=== PATIENT | female | born 1990 | race Caucasian/White ===

== ENCOUNTER → 2017-12-04 07:36 | Outpatient (CLI) | payer BC, SELFPAY ==
[2017-12-06 15:28] LABS: HPV Reflexed? NOT INDICATED
== END ==
PROVIDERS: Visit Provider Obstetrics & Gynecology
DX: Z12.4 Encounter for screening for malignant neoplasm of cervix (principal)
CPT/HCPCS: 88175; G0145

== ENCOUNTER → 2017-12-20 13:15 | Outpatient (CLI) | payer BC, SELFPAY ==
[2017-12-20 13:50] LABS: Absolute Lymphocyte Count 2.22 X10^3/ul (0.83-4.51); Basophil# 0.07 X10^3/uL; Basophil% 0.8 % (0-1); Eosinophil# 0.45 X10^3/uL; Eosinophils% 5.4 % (0-5); Hematocrit 37.5 % (37-47); Hemoglobin 12.5 g/dl (12.0-15.0); Lymphocyte # 2.22 X10^3/ul (4.0); Lymphocyte % 26.9 % (19-41); Mean Corp Hgb Conc 33.3 g/gl (32-36); Mean Corpuscular Hgb 29.6 pg (27.0-32.0); Mean Corpuscular Volume 88.7 fL (81-99); Mean Platelet Vol. 10.1 fl (6.2-12.0); Monocyte# 0.56 X10^3/uL; Monocyte% 6.8 % (0-10); Neutrophil # 4.95 X10^3/uL (2.7-7.7); POSITIVE COUNT NO; POSITIVE DIFFERENTIAL NO; POSITIVE MORPHOLOGY NO; Platelet Count 354 K/mm3 (150-450); RBC Distribution Width CV 12.3 % (11.6-14.6); RBC Distribution Width SD 38.7 fl (35.1-43.9); Red Blood Count 4.23 M/mm3 (4.2-5.4); White Blood Count 8.3 K/mm3 (4.4-11.0)
[2017-12-20 14:21] LABS: Thyroid Stim Hormone (TSH) 1.91 uIU/mL (0.358-3.74)
== END ==
PROVIDERS: Visit Provider Obstetrics & Gynecology
DX: N93.9 Abnormal uterine and vaginal bleeding, unspecified (principal)
CPT/HCPCS: 36415; 84443; 85025

== ENCOUNTER → 2017-12-25 13:14 | Outpatient (CLI) | payer BC, SELFPAY ==
--- NOTE | 2017-12-25 13:15 | US_ITS ---
STUDY: ULTRASOUND TRANSVAGINAL CLINICAL: Female, 27 years old. Menorrhagia TECHNIQUE: Transvaginal COMPARISON: Previous study of 07/17/2009 FINDINGS: Normal uterine size measuring 9.2 x 5.5 x 3.6 cm. There are no myometrial masses. Normal endometrial thickness measuring 7 mm. There are no endometrial masses, and there is no fluid in the endometrial cavity. Normal uterine cervix. Normal right ovary, measuring 3.2 x 1.8 x 2.1 cm. There is a 2.4 x 1.8 x 1.3 cm right ovarian cyst. Normal left ovary, measuring 2.6 x 2.3 x 1.5 cm. There are multiple follicles without a dominant cyst. There is no free fluid in the pelvis. Polycystic ovary disease: No. US/Transvaginal Non- IMPRESSION: 2.4 x 1.8 x 1.3 cm right ovarian cyst. The study is otherwise unremarkable. Electronically Signed: Miguel Ángel Sargent MD at 20:39 EDT , Service support ,
--- NOTE | 2017-12-25 13:15 | US_ITS ---
STUDY: ULTRASOUND TRANSVAGINAL CLINICAL: Female, 27 years old. Menorrhagia TECHNIQUE: Transvaginal COMPARISON: Previous study of 07/17/2009 FINDINGS: Normal uterine size measuring 9.2 x 5.5 x 3.6 cm. There are no myometrial masses. Normal endometrial thickness measuring 7 mm. There are no endometrial masses, and there is no fluid in the endometrial cavity. Normal uterine cervix. Normal right ovary, measuring 3.2 x 1.8 x 2.1 cm. There is a 2.4 x 1.8 x 1.3 cm right ovarian cyst. Normal left ovary, measuring 2.6 x 2.3 x 1.5 cm. There are multiple follicles without a dominant cyst. There is no free fluid in the pelvis. Polycystic ovary disease: No. US/Pelvic (Non ) IMPRESSION: 2.4 x 1.8 x 1.3 cm right ovarian cyst. The study is otherwise unremarkable. Electronically Signed: Miguel Ángel Sargent MD at 20:39 EDT , Service support ,
== END ==
PROVIDERS: Visit Provider Obstetrics & Gynecology
DX: N93.9 Abnormal uterine and vaginal bleeding, unspecified (principal)
CPT/HCPCS: 76830; 76856; 93976

== ENCOUNTER 2019-03-28 10:12 | Day surgery (SDC) | payer BC, SELFPAY ==
[2019-02-12 09:32] VITALS: BMI 22.2
[2019-03-04 10:40] VITALS: BMI 22.2
--- NOTE | 2019-03-15 04:14 | HP.PCM_ITS ---
- Problem List (1) Abnormal uterine bleeding Status: Acute Comment: OCP failed, offered lysteda and IUD- declined. plan lavhbs cysto. 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 Operator Required: No Is patient in pain?: No Allergies No Known Allergies Allergy (Verified 03/04/19 10:24) Medications citalopram 20 mg tablet 20 mg PO DAILY 02/12/19 [History Confirmed 03/04/19] hydroxyzine pamoate 25 mg capsule 25 mg PO QHS 02/12/19 [History Confirmed 03/04/19] Is last menstrual period known: No Post menopausal: No Patient : No : No [facility] Medical History Anxiety and depression (Acute) Surgical History S/P (Resolved) Tubal ligation status (Resolved) Family History Grandmother Breast cancer Social History (Updated 03/04/19 @ 10:40 by Nishi Sweet MD) Smoking Status: Former smoker alcohol intake: current alcohol intake frequency: holidays/special occasions only substance use type: does not use caffeine: Yes what type of physical activity do you participate in: none seatbelt use: always do you feel safe at home: Yes additional social history: - 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 plan surgical intervention. Pregancy History 5 Elective abortions Hx Para 3 Spontaneous abortions Hx # Term Pregnancies Ectopic pregnancies Hx # Pregnancies Multiple births # of living children Past Pregnancies Del. Date Name GA/Weeks Outcome Route Bth Weight Infant Gen Labor Lgth Anesthesia Del Locatn Provider FOB 03/03/10 Cherelle live - full term [facility] 04/22/14 Jessica live - full term [facility] Dr. Sweet 04/27/16 Rachel live - full term [facility] Dr. Brain Chandler Constitutional: Denies fatigue, fever(s), headache(s), increased appetite, poor appetite, weight gain or weight loss Cardio Card: Denies chest pain Resp Resp: Denies cough or dyspnea GI GI: Reports as per HPI; denies abdominal pain, constipation, nausea or vomiting : Reports as per HPI; denies difficulty urinating, painful urination, nipple discharge, urinary frequency, urinary incontinence, urinary hesitancy, urinary urgency, vaginal discharge, vaginal dryness, vaginal odor or vaginal itching Skin Skin/Breast: Denies change in hair, breast lump, breast pain, breast skin changes or nipple discharge Exam Const General: cooperative, healthy appearing, comfortable, no acute distress, well developed Nutritional Appearance: average body habitus Orientation: alert HENMT Head: normal to inspection, normocephalic Neck Neck: normal visual inspection, trachea midline Thyroid: thyroid normal Resp Effort & Inspection: normal respiratory effort GI Inspection: normal to inspection, non-distended Palpation: soft, no hepatosplenomegaly General: bladder normal to palpation External Female Exam: normal external appearance, normal appearance of the urethra Urethra: normal appearance of the urethra, normal palpation, no discharge Speculum Exam - Vagina: normal appearance of the vagina, normal vaginal discharge Speculum Exam - Cervix: normal appearance of the cervix, nontender Bimanual Exam- Vagina & Uterus: normal bimanual exam, uterine size normal, bladder normal to palpation, uterine shape normal, No cervical tenderness, uterine mobility normal, uterine consistency normal, normal cervical palpation, uterus non-tender Bimanual Exam- Adnexa, other: normal adnexae, adnexae mobile, no adnexal masses, pelvic support normal Pelvic Support: normal Skin General: no rashes or lesions noted Assessment & Plan Problems 1. Abnormal uterine bleeding N93.9 OCP failed, offered lysteda and IUD- declined. plan lavhbs cysto. plan same day Plan plan LAVH BS cysto. discussed surgical risks including risks of anesthesia, infection, bleeding, injury to bowel, bladder or blood vessels, and patient wishes to proceed with surgery. Coding Level of Care Code No Charge Diagnoses Abnormal uterine bleeding N93.9 UPDATE- I have seen the patient and performed any clinically relevant updates to the history and physical exam. Nishi Sweet MD
[2019-03-28] VITALS (12 sets, daily range): BP systolic 93–103; BP diastolic 54–70; PULSE 62–99; RESP 16–18; TEMP 36.3–37; O2SAT 94–100; BMI 19.8
[2019-03-28 10:44] LABS: Internal QC Validated? YES +Cl - CLEAR BKGD; Pregnancy, Urine Negative Negative
[2019-03-28] MEDS: Scopolamine 1mg/72hr Patch 1 PATCH TRANSDERM. (11:00)
[2019-03-28 11:05] LABS: Hematocrit 38.7 % (37-47); Hemoglobin 12.8 g/dL (12.0-15.0); Mean Corp Hgb Conc 33.1 g/dL (32-36); Mean Corpuscular Hgb 29.5 pg (27.0-32.0); Mean Corpuscular Volume 89.2 fL (81-99); Mean Platelet Vol. 9.8 fl (6.2-12.0); Platelet Count 265 K/mm3 (150-450); RBC Distribution Width CV 11.7 % (11.6-14.6); RBC Distribution Width SD 38.3 fl (35.1-43.9); Red Blood Count 4.34 M/mm3 (4.2-5.4); White Blood Count 5.8 K/mm3 (4.4-11.0)
[2019-03-28] MEDS: Celecoxib 200 MG Capsule 400 MG PO (11:05)
[2019-03-28] MEDS: Gabapentin 600 MG Tablet PO (11:06)
[2019-03-28] MEDS: Phenazopyridine 95 MG Tablet 190 MG PO (11:06)
[2019-03-28] MEDS: Enoxaparin 40 MG/0.4 ML Syringe SC (11:07)
[2019-03-28] MEDS: Acetaminophen 500 MG Tablet 1000 MG PO ×2 (11:07→20:11)
[2019-03-28 11:15] LABS: Bedside Glucose 90 mg/dL (70-110)
[2019-03-28] MEDS: dexAMETHasone 10 MG/ML Vial 8 MG IV (11:25)
[2019-03-28] MEDS: Magnesium Sulfate 4gm/100mL 4 GM/100 ML IV.SOLN. IV (11:25)
[2019-03-28] MEDS: Cefazolin 2 GM in 0.9% Normal Saline 100 ML IV (12:01)
[2019-03-28] MEDS: Ondansetron 4 MG/2 ML Vial IV (12:10)
--- NOTE | 2019-03-28 12:10 | HYST_PTH ---
PATIENT: MICK FRYE [place] [facility] [place][id number] AGE/SX: 28/F ROOM: RE03/28/[address]: Dr. Nishi Sweet MD : 1990 BED: DIS: 03/28/2019 SPEC #: [id number] RECD: 03/28/19 16:06 STATUS: IAN ALINE #: [id number] JABIER: 03/28/19 12:[address]: Nishi Sweet DEPT: SURGICAL PATHOLOGY RECD BY: Mary Ellen Astorga ENTERED: 03/29/19 09:07 SP TYPE: HYSTERECT OTHR DR: Dr. Steph Lau MD Tissues: Uterus, NOS Procedures: Surgery Specimen Level V HEADER OPERATION: ERAS, hysterectomy, lap assisted vaginal salpingectomy PRE-OP DIAGNOSIS: Abnormal uterine bleeding TISSUE SUBMITTED: Uterus, bilateral fallopian tubes MICROSCOPIC DIAGNOSIS Uterus, hysterectomy: Cervix - nabothian cyst and minimal chronic inflammation. Endometrium - proliferative endometrium. Myometrium - focal superficial adenomyosis. Right fallopian tube - benign paratubal cyst. Left fallopian tube - no pathologic change. AM:micheal 04/01/19 MICROSCOPIC DESCRIPTION Slides are reviewed. GROSS DESCRIPTION Received in fixative is one container labeled with the patient's name and designated uterus, bilateral fallopian tubes. The specimen consists of a hysterectomy specimen consisting of uterus with cervix and attached bilateral fallopian tubes. The uterus with cervix weighs 106 gm and measures 9.5 x 6.5 x 4 cm. The serosal surface is guillen, glistening. The ectocervical mucosa is unremarkable. The external os is oval in contour. The endocervical canal measures 3.5 cm in length and the endocervical mucosa is guillen, glistening and unremarkable. The triangular endometrial cavity measures 5 cm in length and up to 3 cm in width. The endometrium is congested without any mass lesion and measures up to 0.2 cm in thickness. Sections of the uterine wall do not reveal any mass lesion and it measures up to 2 cm in thickness. The right fallopian tube measures 6.5 cm in length and 0.5 cm in diameter. A congested paratubal cyst is noted close to the fimbrial end measuring 2 cm in greatest dimension. The proximal end of the fallopian tube shows a Filshie clip which appears intact. The paratubal cyst is filled with brownish, turbid material. No papillations are identified. The cyst wall measures 0.1 cm in thickness. The left fallopian tube is similar appearance to right and measures 5.5 cm in length and 0.5 cm in diameter. A paratubal cyst is noted measuring 1 cm in greatest dimension. A Filshie clip is also noted at the proximal end which appears intact. Sections reveal unremarkable cut surfaces. Body Piercer sections are submitted in nine cassettes as follows: 1 - anterior cervix, 2 - posterior cervix, 3 & 4 - anterior uterine wall, 5 & 6 - posterior uterine wall, 7 - right fallopian tube, 8 - right paratubal cyst, 9 - left fallopian tube. / ROMIE:micheal 03/29/19 TC:5 CPT: 83264
[2019-03-28] MEDS: Vasopressin 20 UNITS/ML Vial (12:30)
[2019-03-28] MEDS: Bupivacaine 0.25% 30 ML Vial (13:00)
--- NOTE | 2019-03-28 14:32 | PCM.OPRPT ---
Problem List (1) Abnormal uterine bleeding Status: Acute Comment: OCP failed, offered lysteda and IUD- declined. plan lavhbs cysto. plan same day Report of Operation Date of Procedure: 03/28/19 Pre-Operative Diagnosis: aub Post-Operative Diagnosis: same Surgery/Procedure Performed:: lavh bs cysto Description of Surgical Findings:: bladder adhesions quality engineer medical device: Sarah Hollingsworth Type of Anesthesia:: General Special Medications: nam Specimen's removed: uterus tubes Drains: urias Estimated Blood Loss (mL): 100 Fluids Replaced: crystalloid Description of Procedure: Patient received preoperative antibiotics and SCDs were on preoperatively. Patient was taken back to the operating room and placed in the dorsal lithotomy position. General anesthesia was induced and patient was prepped and draped in normal sterile fashion. Uterine manipulator was placed inside the uterus and Urias catheter placed in the bladder. The umbilicus was grasped with towel clamps and an intraumbilical incision was made after injecting with quarter percent Marcaine and a Veress needle entered into the abdomen confirmed to be intra-abdominal with a low opening pressure. Abdomen was insufflated with CO2 gas and the Veress needle removed and the 5 mm trocar was placed under direct visualization without complication. Right and left lower quadrants were transilluminated and injected with quarter percent Marcaine and 5 mm ports placed under direct visualization. Pelvis was well visualized see operative findings for additional information. Bilateral fallopian tubes were identified and transected with the LigaSure device across the mesosalpinx to the level of the utero-ovarian ligament which was also transected with the LigaSure device. The broad ligament was opened up by transecting the round ligament bilaterally and skeletonizing the uterine vessels bilaterally and creating a bladder flap using the LigaSure device. The uterine arteries were transected bilaterally with good visualization of the bladder and the ureters were seen to be inferior lateral to the operative area. Attention was then paid to the vaginal portion of the procedure and the cervix was grasped with Frida clamps and circumferentially injected with dilute vasopressin. A circumferential incision was made and the vaginal mucosa was mobilized off posteriorly and the cul-de-sac entered into sharply and a longneck speculum placed. The anterior cul-de-sac was then identified and entered into sharply. The uterosacral ligaments were clamped cut and suture ligated with 0 Monocryl bilaterally followed by the cardinal ligaments which were clamped cut and suture ligated bilaterally with 0 Monocryl. The uterus serially descended and was removed without difficulty with minimal morcellation. Pelvic sidewall pedicles were checked and noted to have excellent hemostasis. The vaginal mucosa was reapproximated incorporating the posterior peritoneum. This was reapproximated using 0 Vicryl [id number] sutures. Excellent hemostasis was noted. The cystoscopy was then performed and bilateral ureteral strong spray was noted and the bladder was noted to have no abnormality or lesions seen. Urias catheter was replaced and then attention paid to the abdominal portion of the procedure again. The pelvis and cul-de-sac was well visualized and no significant active bleeding noted but some raw areas were seen on the peritoneum and therefore Nam was applied. there was still a raw area seen and so the original suture was remove dand replaced and then a repeat cystoscopy confirmed ureteral patency and normal bladder lining again. Pressure was taken down and the areas visualized and noted of excellent hemostasis. All ports were removed under direct visualization without complication and the abdomen was desufflated of air. The instruments removed from the abdomen and the vagina vaginal sweep was negative. Port sites on the abdomen were closed with 4-0 Monocryl interrupted sutures and Steri's and windows were applied. She was awoken and taken recovery in stable condition. Grafts/Implants Used: none - Complications none - Admit VTE Documentation VTE Present on Admission: No VTE Mechan Device Prophylaxis: SCD's
[2019-03-28] MEDS: Ketorolac 30 MG/ML Syringe IV (15:01)
[2019-03-28] MEDS: Lactated Ringers 500 ML 999 ML IV (15:55)
--- NOTE | 2019-03-28 16:09 | PCM.DC.VHY ---
Discharge Diet: No Restrictions Discharge Activity: Return to Normal Activity, May Not Drive, May Shower May resume sexual activity in: 6-8 weeks Call your doctor if your incision/area has: Continuous Slow Oozing, Sudden Increased Bleeding, Increased Pain/ Swelling, Increased Redness, Foul Smelling Discharge Call your doctor if you observe: Fever of 101 or Higher, Inability to urinate, Inability to have a bowel movement, Using more than one pad per hour Allergies/Adverse Reactions: Allergies No Known Allergies Allergy (Verified 03/28/19 10:52) Medications to take at Discharge citalopram 20 mg tablet 20 mg PO DAILY 02/12/19 hydroxyzine pamoate 25 mg capsule 25 mg PO TID PRN 02/12/19 Lisdexamfetamine Dimesylate [Vyvanse] 40 mg PO DAILY 03/21/19 Naproxen [Naprosyn] 250 - 500 mg PO Q8H PRN PRN #30 tab 03/28/19 Oxycodone HCl/Acetaminophen [Percocet 5-325] 1 - 2 tab PO Q4H PRN PRN 7 Days #15 tab 03/28/19 The following prescriptions were given: Naproxen [Naprosyn] 250 - 500 mg PO Q8H PRN PRN #30 tab PRN Reason: MILD PAIN Transmission Status: Received by [facility] Oxycodone HCl/Acetaminophen [Percocet 5-325] 1 - 2 tab PO Q4H PRN PRN 7 Days #15 tab PRN Reason: Pain Transmission Status: Received by [facility] Primary Care Physician: Steph Lau MD [Primary Care Provider] - Test Results: Test results from this visit will be discussed in further detail at your follow-up appointment, if applicable. Please Follow Up With: Nishi Sweet MD - [phone]
[2019-03-28 16:53] LABS: Hematocrit 34.3 % (37-47); Hemoglobin 11.6 g/dL (12.0-15.0); Mean Corp Hgb Conc 33.8 g/dL (32-36); Mean Corpuscular Hgb 30.1 pg (27.0-32.0); Mean Corpuscular Volume 88.9 fL (81-99); Mean Platelet Vol. 9.9 fl (6.2-12.0); Platelet Count 233 K/mm3 (150-450); RBC Distribution Width CV 11.9 % (11.6-14.6); RBC Distribution Width SD 38.4 fl (35.1-43.9); Red Blood Count 3.86 M/mm3 (4.2-5.4); White Blood Count 14.9 K/mm3 (4.4-11.0)
[2019-03-28] MEDS: oxyCODONE 5 MG Tablet PO (20:15)
== END 2019-03-28 20:36 | disposition home or self-care (01) ==
LOC: SDC 10:13 → AC 10:15
PROVIDERS: Family Provider Family Medicine; PCP Family Medicine; Referring Provider Obstetrics & Gynecology; Visit Provider Obstetrics & Gynecology
PROC: 0UT9FZZ Resection of Uterus, Via Natural or Artificial Opening With Percutaneous Endoscopic Assistance (ICD-10-PCS; CPT 52000; principal; 2019-03-28 11:45)
DX: N80.0 Endometriosis of uterus (principal); N88.8 Other specified noninflammatory disorders of cervix uteri; N72 Inflammatory disease of cervix uteri; N83.8 Other noninflammatory disorders of ovary, fallopian tube and broad ligament; F41.9 Anxiety disorder, unspecified; F32.9 Major depressive disorder, single episode, unspecified; Z87.891 Personal history of nicotine dependence; Z79.899 Other long term (current) drug therapy
CPT/HCPCS: 00840; 52000; 58552; 81025; 82962; 85027; 86850; 86900; 88307; J7120; J2405

== ENCOUNTER 2019-05-16 07:24 | Outpatient (RCR) | payer BC, OTHER, SELFPAY ==
[2019-04-15 13:13] VITALS: BMI 19.8
[2019-05-13 15:38] VITALS: BMI 19.8
== END 2019-05-16 19:00 | disposition home or self-care (01) ==
LOC: PT 07:24
PROVIDERS: Family Provider Family Medicine; PCP Family Medicine; Visit Provider Family Medicine
DX: M22.2X1 Patellofemoral disorders, right knee (principal)